=== PATIENT | male | born 1960 | race Caucasian/White ===

== ENCOUNTER 2022-08-27 09:25 | Inpatient (IN) | payer BC ==
[~2022-08-27] VITALS: Ht 162.6 cm; Wt 109.0 kg
[2022-08-27] MEDS ORDERED: SODIUM CHLORIDE 0.9% 1,000 ML IV ONE (09:45)
[2022-08-27 10:14] LABS: Basophils # (auto) 0 10 ^3/uL (0-0.2); Basophils % (auto) 0.3 % (0.0-2.0); Eosinophils # (auto) 0.1 10 ^3/uL (0-0.8); Eosinophils % (auto) 1.1 % (0.0-7.0); Hematocrit 41.9 % (41.0-53.0); Hemoglobin 14.2 g/dL (13.5-17.5); Lymphocytes # (auto) 0.7 10 ^3/uL (0.4-5.4); Lymphocytes % (auto) 5.9 % (10.0-50.0); Mean Corpuscular Hemoglobin 27.9 pg (28.0-32.0); Mean Corpuscular Hgb Conc. 33.8 g/dL (32.0-36.0); Mean Corpuscular Volume 82.5 fL (80.0-100.0); Monocytes % (auto) 8.5 % (0.0-12.0); Neutrophils # (auto) 10.2 10 ^3/uL (1.6-8.6); Neutrophils % (auto) 84.2 % (37.0-80.0); Red Blood Cells 5.08 10^6/uL (4.5-5.90); Red Cell Distribution Width 14.9 % (11.8-14.3); White Blood Cell 12.1 10^3/uL (4.4-10.8)
[2022-08-27 10:19] LABS: Urine Bacteria FEW /hpf (None Seen); Urine Blood Negative /uL (Negative); Urine Mucus FEW (None Seen); Urine Specific Gravity 1.037 (1.001-1.035); Urine WBC 1 /hpf (0 - 3)
[2022-08-27 10:23] LABS: INR 1.13 (0.9-1.15); Partial Thromboplastin Time 29.6 sec (24.6-33.4)
[2022-08-27] MEDS ORDERED: PIPERACILLIN-TAZOB 3.375GM 100 ML IV ONE (10:30)
[2022-08-27 10:31] LABS: Albumin 2.9 g/dL (3.4-5.0); BUN/Creatinine Ratio 14.8 (10.0-20.0)
[2022-08-27 10:34] LABS: Bilirubin, Total 1.9 mg/dL (0.2-1.0); Total Protein 6.8 g/dL (6.4-8.2)
[2022-08-27] MEDS ORDERED: ONDANSETRON HCL 4 MG/2 ML VIAL IV PRN (11:00)
[2022-08-27] MEDS ORDERED: NITROGLYCERIN 0.4 MG SL TAB SL PRN (11:00)
[2022-08-27] MEDS ORDERED: MORPHINE SULFATE INJ 2 MG/ml SYRG IV PRN (11:00)
[2022-08-27 12:30] LABS: Cholesterol 105 mg/dL (< 200)
[2022-08-27 12:34] LABS: HDL Cholesterol 49 mg/dL (40-59); LDL Cholesterol 31 mg/dL (< 100); Triglycerides 45 mg/dL (< 150)
[2022-08-27] MEDS: LACTATED RINGER'S 1,000 ML IV SCH ×2 (13:37→19:00)
[2022-08-27] MEDS: MEROPENEM 1GM IVPB 100 ML IV SCH ×2 (15:19→22:00)
[2022-08-27 16:22] LABS: Cholesterol 104 mg/dL (< 200)
[2022-08-27 16:24] LABS: HDL Cholesterol 46 mg/dL (40-59); LDL Cholesterol 48 mg/dL (< 100); Triglycerides 44 mg/dL (< 150)
[2022-08-28] MEDS: LACTATED RINGER'S 1,000 ML IV SCH ×5 (03:00→21:45)
[2022-08-28] MEDS: MEROPENEM 1GM IVPB 100 ML IV SCH ×3 (06:01→22:04)
[2022-08-28 06:21] LABS: Calcium 8.7 mg/dL (8.5-10.1); Potassium 3.9 mmol/L (3.5-5.1)
[2022-08-28] MEDS ORDERED: IOHEXOL 300 MG/ML 100ML BOTTLE IJ ONE (06:23)
[2022-08-28 06:27] LABS: Albumin 2.5 g/dL (3.4-5.0); BUN/Creatinine Ratio 15.6 (10.0-20.0); Bilirubin, Total 1.6 mg/dL (0.2-1.0); Total Protein 6.4 g/dL (6.4-8.2)
[2022-08-28 06:39] LABS: Basophils # (auto) 0 10 ^3/uL (0-0.2); Basophils % (auto) 0.2 % (0.0-2.0); Eosinophils # (auto) 0.2 10 ^3/uL (0-0.8); Eosinophils % (auto) 2.4 % (0.0-7.0); Hematocrit 38.6 % (41.0-53.0); Hemoglobin 13.1 g/dL (13.5-17.5); Lymphocytes % (auto) 9.7 % (10.0-50.0); Mean Corpuscular Hemoglobin 27.9 pg (28.0-32.0); Mean Corpuscular Hgb Conc. 33.8 g/dL (32.0-36.0); Mean Corpuscular Volume 82.4 fL (80.0-100.0); Monocytes % (auto) 10.3 % (0.0-12.0); Neutrophils # (auto) 7.6 10 ^3/uL (1.6-8.6); Neutrophils % (auto) 77.4 % (37.0-80.0); Red Blood Cells 4.68 10^6/uL (4.5-5.90); Red Cell Distribution Width 14.9 % (11.8-14.3); White Blood Cell 9.8 10^3/uL (4.4-10.8)
[2022-08-28 11:14] LABS: Hepatitis B Surface Antibody Negative (Negative)
[2022-08-28 11:49] LABS: Hepatitis A Total Antibody Negative (Negative)
[2022-08-28] MEDS ORDERED: MORPHINE SULFATE INJ 2 MG/ml SYRG IV PRN (12:15)
[2022-08-28 12:48] LABS: Hepatitis C Antibody Negative (Negative)
[2022-08-28 17:00] VITALS: BP 128/44
[2022-08-28 17:15] VITALS: BP 128/44
[2022-08-28 22:00] VITALS: BP 136/80
[2022-08-29 05:00] VITALS: BP 119/70
[2022-08-29] MEDS: LACTATED RINGER'S 1,000 ML IV SCH ×3 (05:15→21:45)
[2022-08-29] MEDS: MEROPENEM 1GM IVPB 100 ML IV SCH ×3 (05:33→22:08)
[2022-08-29 06:22] LABS: Basophils # (auto) 0 10 ^3/uL (0-0.2); Basophils % (auto) 0.2 % (0.0-2.0); Eosinophils # (auto) 0 10 ^3/uL (0-0.8); Eosinophils % (auto) 0.2 % (0.0-7.0); Hematocrit 38.1 % (41.0-53.0); Hemoglobin 12.6 g/dL (13.5-17.5); Lymphocytes # (auto) 0.7 10 ^3/uL (0.4-5.4); Lymphocytes % (auto) 6.1 % (10.0-50.0); Mean Corpuscular Hgb Conc. 32.9 g/dL (32.0-36.0); Mean Corpuscular Volume 82.1 fL (80.0-100.0); Monocytes # (auto) 1.2 10 ^3/uL (0-1.3); Monocytes % (auto) 10.5 % (0.0-12.0); Neutrophils # (auto) 9.5 10 ^3/uL (1.6-8.6); Red Blood Cells 4.65 10^6/uL (4.5-5.90); White Blood Cell 11.5 10^3/uL (4.4-10.8)
[2022-08-29 06:44] LABS: Albumin 2.3 g/dL (3.4-5.0); Calcium 8.5 mg/dL (8.5-10.1); Potassium 3.8 mmol/L (3.5-5.1)
[2022-08-29 06:48] LABS: Bilirubin, Total 1.5 mg/dL (0.2-1.0); Total Protein 6.2 g/dL (6.4-8.2)
[2022-08-29 09:00] VITALS: BP 119/68
[2022-08-29] MEDS ORDERED: TPN PER PHARMACY 0 ML IV SCH (12:45)
[2022-08-29 12:56] LABS: Magnesium 1.9 mg/dL (1.6-2.6)
[2022-08-29 13:00] VITALS: BP 126/69
[2022-08-29 13:05] LABS: Phosphorus 3.1 mg/dL (2.5-4.90)
[2022-08-29 17:00] VITALS: BP 124/70
[2022-08-29 22:00] VITALS: BP 133/79
[2022-08-30] MEDS: LACTATED RINGER'S 1,000 ML IV SCH ×3 (03:15→20:51)
[2022-08-30 05:00] VITALS: BP 120/78
[2022-08-30 05:38] LABS: Basophils # (auto) 0 10 ^3/uL (0-0.2); Basophils % (auto) 0.5 % (0.0-2.0); Eosinophils # (auto) 0.2 10 ^3/uL (0-0.8); Eosinophils % (auto) 2.4 % (0.0-7.0); Hematocrit 37.3 % (41.0-53.0); Hemoglobin 12.6 g/dL (13.5-17.5); Lymphocytes # (auto) 0.9 10 ^3/uL (0.4-5.4); Lymphocytes % (auto) 11.3 % (10.0-50.0); Mean Corpuscular Hemoglobin 27.5 pg (28.0-32.0); Mean Corpuscular Hgb Conc. 33.9 g/dL (32.0-36.0); Mean Corpuscular Volume 81.2 fL (80.0-100.0); Monocytes # (auto) 0.9 10 ^3/uL (0-1.3); Monocytes % (auto) 10.2 % (0.0-12.0); Neutrophils # (auto) 6.3 10 ^3/uL (1.6-8.6); Neutrophils % (auto) 75.6 % (37.0-80.0); Red Blood Cells 4.59 10^6/uL (4.5-5.90); Red Cell Distribution Width 14.5 % (11.8-14.3); White Blood Cell 8.4 10^3/uL (4.4-10.8)
[2022-08-30] MEDS: MEROPENEM 1GM IVPB 100 ML IV SCH ×3 (05:39→20:50)
[2022-08-30] MEDS ORDERED: IOHEXOL 300 MG/ML 100ML BOTTLE IJ ONE ×2 (06:08→08:05)
[2022-08-30 09:00] VITALS: BP_SYST 131; BP_SYST 143; BP_DIAS 46; BP_DIAS 82
[2022-08-30 13:00] VITALS: BP 143/76
[2022-08-30 17:00] VITALS: BP 131/74
[2022-08-30 22:00] VITALS: BP 129/65
[2022-08-31 05:00] VITALS: BP 132/82
[2022-08-31] MEDS: LACTATED RINGER'S 1,000 ML IV SCH ×2 (05:45→14:04)
[2022-08-31 05:48] LABS: Basophils # (auto) 0 10 ^3/uL (0-0.2); Basophils % (auto) 0.3 % (0.0-2.0); Eosinophils # (auto) 0.2 10 ^3/uL (0-0.8); Eosinophils % (auto) 2.2 % (0.0-7.0); Hematocrit 36.7 % (41.0-53.0); Hemoglobin 12.3 g/dL (13.5-17.5); Lymphocytes # (auto) 0.9 10 ^3/uL (0.4-5.4); Lymphocytes % (auto) 9.8 % (10.0-50.0); Mean Corpuscular Hemoglobin 27.5 pg (28.0-32.0); Mean Corpuscular Hgb Conc. 33.5 g/dL (32.0-36.0); Mean Corpuscular Volume 81.9 fL (80.0-100.0); Monocytes # (auto) 0.8 10 ^3/uL (0-1.3); Monocytes % (auto) 9.4 % (0.0-12.0); Neutrophils % (auto) 78.3 % (37.0-80.0); Red Blood Cells 4.49 10^6/uL (4.5-5.90); Red Cell Distribution Width 14.8 % (11.8-14.3); White Blood Cell 8.9 10^3/uL (4.4-10.8)
[2022-08-31 05:59] LABS: Albumin 2.1 g/dL (3.4-5.0); Calcium 8.5 mg/dL (8.5-10.1); Potassium 3.9 mmol/L (3.5-5.1)
[2022-08-31] MEDS: MEROPENEM 1GM IVPB 100 ML IV SCH ×3 (06:00→22:07)
[2022-08-31 06:03] LABS: BUN/Creatinine Ratio 17.6 (10.0-20.0); Bilirubin, Total 0.8 mg/dL (0.2-1.0); Total Protein 5.7 g/dL (6.4-8.2)
[2022-08-31 09:00] VITALS: BP 135/77
[2022-08-31 13:00] VITALS: BP 139/83
[2022-08-31] MEDS: guaiFENesin-DM 100/10mg/5ml SYR PO PRN ×2 (16:50→22:07)
[2022-08-31 17:00] VITALS: BP 133/70
[2022-08-31 22:00] VITALS: BP 128/68
[2022-09-01 05:00] VITALS: BP 130/74
[2022-09-01 05:40] LABS: Basophils # (auto) 0 10 ^3/uL (0-0.2); Basophils % (auto) 0.4 % (0.0-2.0); Eosinophils # (auto) 0.2 10 ^3/uL (0-0.8); Eosinophils % (auto) 2.7 % (0.0-7.0); Hematocrit 36.8 % (41.0-53.0); Hemoglobin 12.4 g/dL (13.5-17.5); Lymphocytes # (auto) 0.4 10 ^3/uL (0.4-5.4); Lymphocytes % (auto) 6.9 % (10.0-50.0); Mean Corpuscular Hemoglobin 27.3 pg (28.0-32.0); Mean Corpuscular Hgb Conc. 33.8 g/dL (32.0-36.0); Mean Corpuscular Volume 80.9 fL (80.0-100.0); Monocytes # (auto) 0.8 10 ^3/uL (0-1.3); Monocytes % (auto) 13.7 % (0.0-12.0); Neutrophils # (auto) 4.7 10 ^3/uL (1.6-8.6); Neutrophils % (auto) 76.3 % (37.0-80.0); Nucleated Red Blood Cells % 0.1 %; Red Blood Cells 4.55 10^6/uL (4.5-5.90); Red Cell Distribution Width 14.8 % (11.8-14.3); White Blood Cell 6.2 10^3/uL (4.4-10.8)
[2022-09-01] MEDS: MEROPENEM 1GM IVPB 100 ML IV SCH (06:01)
[2022-09-01 06:05] LABS: Potassium 3.7 mmol/L (3.5-5.1)
[2022-09-01 06:14] LABS: Albumin 2.2 g/dL (3.4-5.0); BUN/Creatinine Ratio 13.4 (10.0-20.0); Bilirubin, Total 0.6 mg/dL (0.2-1.0); Calcium 8.3 mg/dL (8.5-10.1); Total Protein 5.9 g/dL (6.4-8.2)
[2022-09-01] MEDS: guaiFENesin-DM 100/10mg/5ml SYR PO PRN (06:18)
[2022-09-01] MEDS ORDERED: HYDR-4902 PO (07:32)
[2022-09-01] MEDS ORDERED: DOCU-94 PO (07:32)
[2022-09-01] MEDS ORDERED: METR500T PO (07:32)
[2022-09-01] MEDS ORDERED: LEVO500T31 PO (07:32)
[2022-09-01] MEDS: LACTATED RINGER'S 1,000 ML IV SCH (08:45)
[2022-09-01 09:00] VITALS: BP 133/72
== END 2022-09-01 11:00 | disposition home or self-care (01) | DRG 871 ==
LOC: ER 09:25 → TELE 11:04 → TELE-EAST 08-28 16:45
PROVIDERS: ADMIT Registered Nurse; ATTEND Nurse Practitioner Acute Care
DX: A41.9 Sepsis, unspecified organism (principal); E43 Unspecified severe protein-calorie malnutrition; K57.20 Diverticulitis of large intestine with perforation and abscess without bleeding; N30.00 Acute cystitis without hematuria; K59.00 Constipation, unspecified; E66.01 Morbid (severe) obesity due to excess calories; Z68.39 Body mass index [BMI] 39.0-39.9, adult; Z80.3 Family history of malignant neoplasm of breast; Z87.442 Personal history of urinary calculi; Z87.891 Personal history of nicotine dependence; Z71.3 Dietary counseling and surveillance
CPT/HCPCS: 36415; 71045; 74018; 74176; 74177; 74178; 76705; 80053; 80061; 81001; 82977; 83036; 83605; 83735; 84100; 84443; 85025; 85610; 85730; 86704; 86706; 86708; 86803; 86850; 86900; 86901; 87040; 87086; 87340; 93306; G0378; J2185; J2543